=== PATIENT | male | born 1965 | race Caucasian/White ===

== ENCOUNTER 2023-10-17 16:14 | Observation (INO) | payer BC ==
[2023-10-17] MEDS ORDERED: VANCOMYCIN IV PER PHARMACY 1 EACH MISC MISCELLANE PRN (17:11)
[2023-10-17] MEDS: AMPICILLIN-SULBACTAM 3 GM in SODIUM CHLORIDE 0.9% 100 ML IVPB STA (17:40)
[2023-10-17] MEDS: SODIUM CHLORIDE 0.9% 1,000 ML IV ONE (17:41)
[2023-10-17 17:43] LABS: Basophils % (A) 0 %; Eosinophils % (A) 0 %; HCT 35.9 % (39.0-53.0); HGB 12.3 gm/dL (13.0-17.5); Lymphocytes # (A) 0.9 k/uL (1.0-4.8); Lymphocytes % (A) 4 %; MCH 31.4 pg (25.0-35.0); MCHC 34.2 g/dL (31.0-37.0); MCV 91.8 fL (80.0-100.0); Monocytes # (A) 0.8 k/uL (0-1.0); Monocytes % (A) 4 %; Neutrophils % (A) 91 %; Platelet Count 164 k/uL (150-450); RBC 3.91 m/uL (4.30-5.90); RDW 12.2 % (11.5-15.5); WBC 20.9 k/uL (3.8-10.6)
[2023-10-17 18:05] LABS: ALT 26 U/L (4-49); AST 28 U/L (17-59); African American GFR (CKD) >90 (>60 ml/min/1.73 sqM); Albumin 3.5 g/dL (3.5-5.0); Alkaline Phosphatase 91 U/L (38-126); Anion Gap 7 mmol/L; Blood Urea Nitrogen 13 mg/dL (9-20); Calcium 8.9 mg/dL (8.4-10.2); Carbon Dioxide 22 mmol/L (22-30); Chloride 104 mmol/L (98-107); Glucose 103 mg/dL (74-99); Non-African American GFR(CKD) >90 (>60 ml/min/1.73 sqM); Potassium 3.7 mmol/L (3.5-5.1); Sodium 133 mmol/L (137-145); Total Bilirubin 0.6 mg/dL (0.2-1.3); Total Protein 6.1 g/dL (6.3-8.2)
[2023-10-17 18:27] LABS: C Reactive Protein 18.4 mg/dL (<1.0)
[2023-10-17] MEDS: VANCOMYCIN 1,500 MG in SODIUM CHLORIDE 0.9% 500 ML 500 ML IVPB ONE (18:49)
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
[2023-10-17] MEDS ORDERED: ACETAMINOPHEN TAB 325 MG TAB PO PRN (19:12)
[2023-10-17] MEDS ORDERED: NALOXONE 0.4 MG/ML 1 ML VIAL IV PRN (19:12)
[2023-10-17] MEDS ORDERED: VANCOMYCIN 1,500 MG in SODIUM CHLORIDE 0.9% 500 ML 500 ML IVPB SCH (19:30)
[2023-10-18] MEDS: VANCOMYCIN 1,500 MG in SODIUM CHLORIDE 0.9% 500 ML 500 ML IVPB SCH ×2 (00:07→03:54)
[2023-10-18] MEDS: SODIUM CHLORIDE 0.9% 1,000 ML IV SCH (00:33)
[2023-10-18 03:51] LABS: Erythrocyte Sedimentation Rate 47 mm/Hr (0-20)
[2023-10-18 10:01] LABS: Blood Urea Nitrogen 4.8 mg/dL (9.0-27.0); Calcium 8.1 mg/dL (8.7-10.3); Carbon Dioxide 22.5 mmol/L (21.6-31.8); Chloride 104 mmol/L (96-109); Glucose 114 mg/dL (70-110); Potassium 3.8 mmol/L (3.5-5.5); Sodium 137 mmol/L (135-145)
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
[2023-10-18] MEDS: FAMOTIDINE 20 MG TAB PO SCH (11:01)
[2023-10-18] MEDS: IBUPROFEN 400 MG TAB PO PRN (14:49)
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
[2023-10-19 04:21] LABS: African American GFR (CKD) >90 (>60 ml/min/1.73 sqM); Anion Gap 3 mmol/L; Blood Urea Nitrogen 6 mg/dL (9-20); Calcium 8.4 mg/dL (8.4-10.2); Carbon Dioxide 24 mmol/L (22-30); Chloride 108 mmol/L (98-107); Glucose 107 mg/dL (74-99); Non-African American GFR(CKD) >90 (>60 ml/min/1.73 sqM); Potassium 4.4 mmol/L (3.5-5.1); Sodium 135 mmol/L (137-145)
[2023-10-19] MEDS: VANCOMYCIN TROUGH DUE 1 EACH MISC MISCELLANE ONE (04:24)
[2023-10-19 10:42] LABS: Basophils # (A) 0.03 X 10*3/uL (0.00-0.10); Basophils % (A) 0.2 %; Eosinophils # (A) 0.04 X 10*3/uL (0.04-0.35); Eosinophils % (A) 0.3 %; HCT 29.7 % (39.6-50.0); HGB 9.7 g/dL (13.0-17.0); Lymphocytes # (A) 1.17 X 10*3/uL (0.90-5.00); Lymphocytes % (A) 8.5 %; MCH 31.6 pg (27.0-32.0); MCHC 32.7 g/dL (32.0-37.0); MCV 96.7 FL (80.0-97.0); Mean Platelet Volume 13.8 FL (9.5-12.2); Monocytes # (A) 0.79 X 10*3/uL (0.20-1.00); Monocytes % (A) 5.7 %; NRBC Per 100 WBC 0 X 10*3/uL (0.00-0.01); Neutrophils # (A) 11.62 X 10*3/uL (1.80-7.70); Neutrophils % (A) 84.4 %; Platelet Count 138 X 10*3/uL (140-440); RBC 3.07 X 10*6/uL (4.40-5.60); RDW 12.3 % (11.5-14.5); WBC 13.77 X 10*3/uL (4.50-10.00)
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
--- NOTE | 2023-10-19 16:23 | P.PN ---
Subjective Progress Note Date: 10/19/23 Interval History: Patient is a 58-year-old male with no risk factors who came in due to a right arm infection and an elevated WBC from urgent care. 2 weeks prior, patient reports that he had a steam burn on his right hand that he managed with keeping the wound clean and bandaged. However on 10/13, patient reports that his knuckles became painful with an associated swelling of their right hand to proximal wrist area. On 10/14, the swelling extended to entire forearm with red streaks and development of a fever which caused him to seek care at an urgent care clinic. He was given a shot of antibiotics that is unrecalled and blood work was done. On 10/15, patient was advised by urgent care provider to seek care at the ED due to a very elevated white count. He denies numbness, pain, or limited range of motion of the right forearm. He denies new onset cough, shortness of breath, headaches, abdominal pain, nausea, vomiting, diarrhea, bruising, or recent travel. WBC 20.9 hemoglobin 12.3 hematocrit 35.9 platelet count 164 ESR 47 CRP 18.4 sodium 133 glucose 103 Lactic acid 1.2 On admission patient was afebrile temperature of 99.3 blood pressure 105/55 pulse of 101 respiratory rate 18 satting at 97% on room air 10/18-- Patient was seen and examined today. Right hand swelling and tenderness is improving. Assessment and plan: Cellulitis of the right forearm due to right hand wound Patient afebrile at this time. WBC at 20.9. Lactic at 1.2 -Continue with vancomycin IVPB dosed per pharmacy -Continue with Tylenol 650 p.o. and Motrin 400 p.o. as needed for pain or fever -wound cultures-Staph aureus--, strep A -Blood cultures -Monitor labs Infectious disease consulted #. Elevated ESR and CRP likely due to the above Patient is symptomatic and stable at this time. -Will monitor wound for now Chronic conditions: Moderate EtOH use, current smoker GI prophylaxis: Pepcid 20 mg p.o. daily PHYSICAL EXAMINATION: GENERAL: The patient is A&O x3, NAD HEENT: EOMI, Sclerae anicteric, Moist Mucous membranes Neck: Supple, Non tender, No JVD PULMONARY: Equal breath souds B/L, No wheezing, No crackles. CARDIOVASCULAR: S1, S2 present. No murmurs, rubs, or gallops. ABDOMEN: Soft, nontender, nondistended, normoactive bowel sounds. No guarding or rebound tenderness. MUSCULOSKELETAL: Right hand dressed, erythema, tenderness warmth right forearm. No edema, No cyanosis. No clubbing. Normal ROM. Intact peripheral pulses. EXTREMITIES: No cyanosis, clubbing, or pedal edema. NEUROLOGICAL: CN 2-12 grossly intact. No FND Skin: No Rash REVIEW OF SYSTEMS: CONSTITUTIONAL: No fever or chills. CARDIOVASCULAR: No chest pain, palpitations or syncope. PULMONARY: No shortness of breath, no cough, sore throat. GASTROINTESTINAL: No nausea, vomiting, diarrhea, abdominal pain. : No Dysuria, urgency, frequency. Extremities: No edema. NEUROLOGICAL: No headaches, no weakness, or numbness Dictation was produced using [employer] dictation software. please excuse any grammatical, word or spelling errors. Objective - Vital Signs Vital signs: Vital Signs Temp 98.6 F 10/19/23 15:00 Pulse 71 10/19/23 15:00 Resp 18 10/19/23 15:00 BP 126/73 10/19/23 15:00 Pulse Ox 97 10/19/23 15:00 FiO2 Intake & Output 10/18/23 10/19/23 10/19/23 18:59 06:59 18:59 Intake Total 118 218 Balance 118 218 Intake: Oral 118 218 Other: # Voids 4 3 2 # Bowel Movements 0 - Labs CBC & Chem 7: 10/19/23 03:24 10/19/23 03:24 Labs: Abnormal Lab Results - Last 24 Hours (Table) 10/19/23 10/19/23 Range/Units 03:24 03:24 WBC 13.77 H (4.50-10.00) X 10*3/uL RBC 3.07 L (4.40-5.60) X 10*6/uL Hgb 9.7 L (13.0-17.0) g/dL Hct 29.7 L (39.6-50.0) % Plt Count 138 L (140-440) X 10*3/uL MPV 13.8 H (9.5-12.2) FL Immature Gran # 0.12 H (0.00-0.04) X 10*3/uL Neutrophils # 11.62 H (1.80-7.70) X 10*3/uL Sodium 135 L (137-145) mmol/L Chloride 108 H (98-107) mmol/L BUN 6 L (9-20) mg/dL Creatinine 0.62 L (0.66-1.25) mg/dL Glucose 107 H (74-99) mg/dL Microbiology - Last 24 Hours (Table) 10/17/23 17:35 Gram Stain - Preliminary Hand - Right Wound Culture - Preliminary Staphylococcus aureus Strep A
[2023-10-20 07:35] VITALS: BP 116/71; PULSE 51; RESP 16; TEMP 97.5
[2023-10-20 07:38] LABS: African American GFR (CKD) >90 (>60 ml/min/1.73 sqM); Anion Gap 3 mmol/L; Blood Urea Nitrogen 6 mg/dL (9-20); Calcium 8.2 mg/dL (8.4-10.2); Carbon Dioxide 23 mmol/L (22-30); Chloride 112 mmol/L (98-107); Glucose 95 mg/dL (74-99); Non-African American GFR(CKD) >90 (>60 ml/min/1.73 sqM); Potassium 3.4 mmol/L (3.5-5.1); Sodium 138 mmol/L (137-145)
[2023-10-20 11:49] LABS: Basophils # (A) 0.02 X 10*3/uL (0.00-0.10); Basophils % (A) 0.3 %; Eosinophils # (A) 0.14 X 10*3/uL (0.04-0.35); Eosinophils % (A) 1.9 %; HCT 28.9 % (39.6-50.0); HGB 9.5 g/dL (13.0-17.0); Lymphocytes # (A) 1.31 X 10*3/uL (0.90-5.00); Lymphocytes % (A) 17.5 %; MCHC 32.9 g/dL (32.0-37.0); MCV 94.4 FL (80.0-97.0); Mean Platelet Volume 13.6 FL (9.5-12.2); Monocytes # (A) 0.62 X 10*3/uL (0.20-1.00); Monocytes % (A) 8.3 %; NRBC Per 100 WBC 0 X 10*3/uL (0.00-0.01); Neutrophils # (A) 5.31 X 10*3/uL (1.80-7.70); Neutrophils % (A) 70.9 %; Platelet Count 172 X 10*3/uL (140-440); RBC 3.06 X 10*6/uL (4.40-5.60); RDW 12.3 % (11.5-14.5); WBC 7.48 X 10*3/uL (4.50-10.00)
[2023-10-20] MEDS ORDERED: Potassium Replacement Protocol 1 EACH MISC MISCELLANE PRN (12:34)
[2023-10-20] MEDS: POTASSIUM CHLORIDE ER 20 MEQ TAB.ER PO SCH (13:14)
--- NOTE | 2023-10-20 15:16 | P.PN ---
Subjective Progress Note Date: 10/20/23 Principal diagnosis: Reason for follow-up is right upper extremity cellulitis and right hand wound Patient is a 58-year-old male with no significant past medical history except everyday smoker for the last 35 years presenting to the hospital for evaluation of right arm swelling and redness apparently the patient did have a burn wound on his right hand that happened about 2 weeks ago before presentation to the hospital has been diagnosed with a cellulitis with an open wound to the right hand dorsum area. On today's evaluation that is 10/20/2023, the patient continues to be afebrile, the patient is on room air and breathing comfortably, the Pt denies having any chest pain or cough, the patient denies having any abdominal pain no vomiting or any diarrhea, the patient right hand and right upper extremity swelling redness has improved feeling better wants to go home. Patient white count normalized to 7.48, creatinine 0.49 culture finalized with stripped and MSSA blood cultures so far negative Objective - Vital Signs Vital signs: Vital Signs Temp 97.5 F L 10/20/23 07:00 Pulse 51 L 10/20/23 07:00 Resp 16 10/20/23 07:00 BP 116/71 10/20/23 07:00 Pulse Ox 99 10/20/23 07:00 FiO2 Intake & Output 10/19/23 10/20/23 10/20/23 18:59 06:59 18:59 Intake Total 336 118 Balance 336 118 Intake: Oral 336 118 Other: # Voids 2 1 - Exam GENERAL DESCRIPTION: Middle-age male lying in bed in no distress RESPIRATORY SYSTEM: Unlabored breathing , decreased breath sounds at bases HEART: S1 S2 regular rate and rhythm , ABDOMEN: Soft , no tenderness EXTREMITIES: Right hand dorsal wound is drying out, right upper extremity swelling redness slightly decreased - Labs CBC & Chem 7: 10/20/23 06:19 10/20/23 06:19 Labs: Abnormal Lab Results - Last 24 Hours (Table) 10/20/23 10/20/23 Range/Units 06:19 06:19 RBC 3.06 L (4.40-5.60) X 10*6/uL Hgb 9.5 L (13.0-17.0) g/dL Hct 28.9 L (39.6-50.0) % MPV 13.6 H (9.5-12.2) FL Immature Gran # 0.08 H (0.00-0.04) X 10*3/uL Potassium 3.4 L (3.5-5.1) mmol/L Chloride 112 H (98-107) mmol/L BUN 6 L (9-20) mg/dL Creatinine 0.49 L (0.66-1.25) mg/dL Calcium 8.2 L (8.4-10.2) mg/dL Microbiology - Last 24 Hours (Table) 10/18/23 19:16 Blood Culture - Preliminary Blood 10/17/23 17:35 Gram Stain - Final Hand - Right Wound Culture - Final Strep A Staphylococcus aureus Assessment and Plan (1) Cellulitis of right hand Status: Acute Code(s): L03.113 - CELLULITIS OF RIGHT UPPER LIMB SNOMED Code( s): 74582166023107224 (2) Leukocytosis Status: Acute Code(s): D72.829 - ELEVATED WHITE BLOOD CELL COUNT, UNSPECIFIED SNOMED Code(s): 972577048 Plan: 1patient presented to hospital with extensive cellulitis to the right upper extremity in this patient who did have a wound to the right and also more likely site of injury for the cellulitis and likely from gram-positive skin darlin apparently failing outpatient oral antibiotic therapy 2-patient culture has been finalized with MSSA we will discontinue vancomycin will give him a dose of cefazolin x 1 afterwards he will be able to go home on oral Keflex x 10 days prescription sent to the pharmacy and close outpatient follow-up local care with the diagnosis of the dressing changes every 48 hour Dictation was produced using [employer] dictation software. please excuse any grammatical, word or spelling errors. Time with Patient: Less than 30
--- NOTE | 2023-10-20 15:25 | P.DS ---
Providers Date of admission: 10/17/23 19:17 Attending physician: Rosana Medina Consults: 10/17/23 19:12 Consult Physician Urgent Consulting Provider: Wayne Grady Consult Reason/Comments: right hand cellulitis Do you want consulting provider notified?: Yes Primary care physician: Stated None Hospital Course: Hospital Course: Patient is a 58-year-old male with no risk factors who came in due to a right arm infection and an elevated WBC from urgent care. 2 weeks prior, patient reports that he had a steam burn on his right hand that he managed with keeping the wound clean and bandaged. However on 10/13, patient reports that his knuckles became painful with an associated swelling of their right hand to proximal wrist area. On 10/14, the swelling extended to entire forearm with red streaks and development of a fever which caused him to seek care at an urgent care clinic. He was given a shot of antibiotics that is unrecalled and blood work was done. On 10/15, patient was advised by urgent care provider to seek care at the ED due to a very elevated white count. On admission, WBC 20.9 hemoglobin ESR 47 CRP 18.4 Lactic acid 1.2. Patient was diagnosed to have cellulitis of right hand that extended to forearm and was admitted to the floor for further management. Infectious disease and wound care was consulted. Patient was started on IM Unasyn, IV Vancomycin, and pain control with PO Tylenol and PO Motrin and dry aquacel silver dressing on wound to change every 48 hours. Patient's symptoms improved throughout the duration of stay and he did not develop any new symptoms. Infectious disease recommended oral Keflex for 10 days prescription and close outpatient follow-up local care with the diagnosis of the dressing changes every 48 hour. Final Diagnosis: #. Cellulitis of the right forearm due to right hand wound Chronic conditions: Moderate EtOH use, current smoker Physical examination: Vital signs reviewed General: non toxic, no distress, appears at stated age, normal weight Derm: no unusual rashes/lesions, warm Head: atraumatic, normocephalic, symmetric Eyes: EOMI, no lid lag, anicteric sclera, pupils equal round reactive to light ENT: Nose and ears atraumatic Neck: No cervical lymphadenopathy, trachea midline, supple Mouth: no lip lesion, mucus membranes moist Cardiovascular: S1S2 reg, no murmur, Lungs: CTA bilateral, no rhonchi, no rales, no accessory muscle use Abdominal: soft, nontender to palpation, no guarding Ext: muscle strength 5 out of 5 in all 4 extremities grossly, no gross muscle atrophy, no contractures, positive dorsalis pedis pulse bilateral, no edema Neuro: CN II-XI grossly intact, no gross focal neuro deficits Psych: Alert, oriented, appropriate affect and mood Attestation: I have personally seen and examined the patient with Resident, polly ewed the documentation and participated and agree with the assessment and plan as written. Patient Condition at Discharge: Stable Plan - Discharge Summary Discharge Rx Participant: Yes New Discharge Prescriptions: New Cephalexin [Keflex] 500 mg PO Q6HR 10 Days #40 cap Ibuprofen [Motrin] 400 mg PO Q6HR PRN 10 Days #40 tab PRN Reason: Mild Pain Or Fever > 100.5 Discontinued Doxycycline Hyclate 100 mg PO BID Silver Sulfadiazine [SSD 1% Cream] 1 applic TOPICAL BID Discharge Medication List Cephalexin [Keflex] 500 mg PO Q6HR 10 Days #40 cap 10/20/23 [Rx] Ibuprofen [Motrin] 400 mg PO Q6HR PRN 10 Days #40 tab 10/20/23 [Rx] Follow up Appointment(s)/Referral(s): None,Stated [Primary Care Provider] - 1-2 days (unable to make appointment, patient instructed to call during normal office hours.) Wayne Grady MD [STAFF PHYSICIAN] - 1 Week (unable to make appointment, patient instructed to call during normal office hours.) Patient Instructions/Handouts: Cellulitis (ED) Activity/Diet/Wound Care/Special Instructions: DRESSING: Dressing to right hand was last changed 10/20/23, this should be changed every 48 hours. Apply saline moistened Aquacell AG to wound, apply gauze or gauze wrap, then apply SONG wrap if needed for swelling or stability. Wound dressing instructions reviewed with patient and spouse at bedside. Discharge Disposition: HOME SELF-CARE
== END 2023-10-20 14:48 | disposition home or self-care (01) ==
LOC: EC 16:14 → 6NMEDSUR 19:17
PROVIDERS: ADMIT Hospitalist; ATTEND Hospitalist
DX: L03.113 Cellulitis of right upper limb (principal); R79.82 Elevated C-reactive protein (CRP); R70.0 Elevated erythrocyte sedimentation rate; Z87.891 Personal history of nicotine dependence
CPT/HCPCS: 36415; 80048; 80053; 80202; 83605; 85025; 85652; 86140; 87040; 87070; 87077; 87186; 87205; 96361; 96365; 96366; 96367; 96375; 96376; 99285